=== PATIENT | male | born 1960 | race Caucasian/White ===

== ENCOUNTER 2020-03-25 00:46 | Inpatient (IN) ==
[2020-03-25] MEDS ORDERED: Isovue-370 500 ML BOTTLE IVP ONE ×2 (01:15)
[2020-03-25] MEDS ORDERED: EPINEPHrine 1 MG/ML VIAL IM ONE (01:19)
[2020-03-25] MEDS ORDERED: Piperacillin/Tazobactam 3.375 GM in 0.9 % Sodium Chloride Mini Bag 100 ML IVPB ONE (01:19)
[2020-03-25] MEDS ORDERED: Tdap (Boostrix) Vaccine 0.5 ML SYRINGE IM ONE (01:21)
[2020-03-25 01:30] LABS: Hematocrit 45.3 % (37.5-50.1); Hemoglobin 14.2 g/dL (12.9-16.9); Mean Corpuscular HGB Conc 31.3 g/dL (31.6-35.5); Mean Corpuscular Hemoglobin 30.9 pg (28.0-33.3); Mean Corpuscular Volume 98.5 fL (83.0-100.0); Platelet Count 344 K/mcL (140-400); Red Cell Distribution Width 12.9 % (11.5-14.5); White Blood Count 15.2 K/mcL (4.3-11.1)
[2020-03-25] MEDS ORDERED: Midazolam HCl 50 MG/100 ML IV.SOLN IVC SCH (01:30)
[2020-03-25 01:36] LABS: Prothrombin Time 11.4 Seconds (9.4-12.1)
[2020-03-25 01:38] LABS: Activated Partial Thrombo Time 29.3 Seconds (26.0-36.0)
[2020-03-25 01:51] LABS: BUN/Creatinine Ratio 8 (6-26); Blood Urea Nitrogen 10 mg/dL (6-20); Carbon Dioxide 23 mEq/L (23-29); Chloride 104 mEq/L (98-107); Creatine Kinase 232 Units/L (30-223); Ethanol < 10 mg/dL (Less than 10); Glucose 361 mg/dL (70-105); Magnesium 1.9 mg/dL (1.6-2.6); Osmolality,Calculated 302 (280-300); Potassium 3.9 mEq/L (3.5-5.1); Sodium 139 mEq/L (136-145); eGFR For African Americans > 60 (> 60); eGFR For Non-African Americans > 60 (> 60)
[2020-03-25 01:55] LABS: Bilirubin,Urine Negative (Negative); Blood,Urine Trace (Negative); Clarity,Urine Cloudy (Clear); Color,Urine Yellow (Yellow); Glucose,Urine (UA) >=1000 mg/dL (Normal); Ketones,Urine Negative (Negative); Leukocyte Esterase,Urine Negative (Negative); Nitrite,Urine Negative (Negative); PH,Urine 5.5 pH Units (5.0-8.0); Protein,Urine 100 mg/dL (Neg-Trace); Specific Gravity,Urine 1.021 (1.010-1.025); Urobilinogen,Urine Normal (Normal)
[2020-03-25 02:00] LABS: Troponin I 0.06 ng/mL (< 0.04)
[2020-03-25 02:00] LABS: Hyaline Casts,Urine Few per lpf (None-Few); RBC,Urine 0-3 per hpf (0-3); Squamous Epithelial Cell,Urine Many per lpf (None-Few)
[2020-03-25 02:14] LABS: Amphetamine Screen,Urine Negative ng/mL (Cutoff=1000); Barbiturate Screen,Urine Negative ng/mL (Cutoff=200); Benzodiazepines Screen,Urine Positive ng/mL (Cutoff=200); Cannabinoid Screen,Urine Positive ng/mL (Cutoff = 50); Cocaine Screen,Urine Negative ng/mL (Cutoff= 300); Opiate Screen,Urine Negative ng/mL (Cutoff=300); Phencyclidine Screen,Urine Negative ng/mL (Cutoff=25)
[2020-03-25] MEDS ORDERED: *HR* Midazolam HCl 2 MG/2 ML VIAL IVP ONE ×4 (02:17→18:11)
[2020-03-25 02:21] LABS: Calcium Oxalate Crystals,Urine Present; Mucus,Urine Few per lpf (None-Few)
[2020-03-25 02:22] LABS: Bacteria,Urine Few per hpf (None-Few)
[2020-03-25 02:54] LABS: ABG Base Excess -1 mEq/L (-2 to 3); ABG HCO3 33 mEq/L (21-27); ABG Oxygen Saturation 99 % (95-98); ABG PCO2 111 mmHg (35-45); ABG PH 7.08 pH Units (7.32-7.45); ABG PO2 190 mmHg (85-104); ABG TCO2 36 mEq/L (20-26); Blood Gas VT 500 cc
[2020-03-25 04:11] LABS: Acetaminophen < 10 mcg/mL (10-20); Salicylate < 2.5 mg/dL (15.0-30.0)
[2020-03-25] MEDS ORDERED: 0.9 % Sodium Chloride 1,000 ML IVC ONE (04:30)
[2020-03-25 04:31] LABS: ABG Base Excess -2 mEq/L (-2 to 3); ABG HCO3 32 mEq/L (21-27); ABG Oxygen Saturation 87 % (95-98); ABG PCO2 112 mmHg (35-45); ABG PH 7.07 pH Units (7.32-7.45); ABG PO2 77 mmHg (85-104); ABG TCO2 36 mEq/L (20-26); Blood Gas VT 500 cc
[2020-03-25] MEDS ORDERED: Artificial Tears SOLN 15 ML BOTTLE BOTH EYES PRN (07:53)
[2020-03-25] MEDS ORDERED: Vancomycin 1,750 MG in 0.9 % Sodium Chloride 250 ML IVPB SCH (08:00)
[2020-03-25 08:07] LABS: ABG Base Excess 3 mEq/L (-2 to 3); ABG HCO3 30 mEq/L (21-27); ABG Oxygen Saturation 95 % (95-98); ABG PCO2 51 mmHg (35-45); ABG PH 7.37 pH Units (7.32-7.45); ABG PO2 79 mmHg (85-104); ABG TCO2 31 mEq/L (20-26); Blood Gas Modality ASSIST CONTROL; Blood Gas VT 600 cc
[2020-03-25] MEDS: Chlorhexidine Rinse 15 ML MOUTHWASH MM SCH ×2 (08:52→20:54)
[2020-03-25] MEDS: Artificial Tears SOLN 15 ML BOTTLE BOTH EYES SCH ×4 (08:52→20:57)
[2020-03-25] MEDS ORDERED: *HR* Heparin 5,000 UNIT/ML VIAL SQ SCH (09:00)
[2020-03-25] MEDS: Dexmedetomidine HCl 400 MCG/100 ML MLS IVC SCH ×3 (09:30→22:20)
[2020-03-25] MEDS: FentaNYL (PF) 1,000 MCG/100 ML IV.SOLN IVC SCH ×2 (09:30→17:19)
[2020-03-25] MEDS: Piperacillin/Tazobactam 3.375 GM in 0.9 % Sodium Chloride Mini Bag 100 ML IVPB SCH ×2 (09:30→18:14)
[2020-03-25] MEDS ORDERED: *HR* Heparin 5,000 UNIT/ML VIAL IVP PRN ×2 (09:44)
[2020-03-25] MEDS ORDERED: *HR* Heparin 5,000 UNIT/ML VIAL IVP ONE (09:44)
[2020-03-25] MEDS: Ipratropium/Albuterol Neb 3 ML IH SCH ×5 (09:50→23:39)
[2020-03-25] MEDS ORDERED: Perflutren Lipid Microsphere 1.3 ML in 0.9 % Sodium Chloride 8.7 ML IVP ONE (09:58)
[2020-03-25] MEDS: MethylPREDNISolone 40 MG/ML VIAL IVP SCH ×2 (10:05→15:37)
[2020-03-25 11:20] LABS: Hematocrit 47.9 % (37.5-50.1); Hemoglobin 15.2 g/dL (12.9-16.9); Mean Corpuscular HGB Conc 31.7 g/dL (31.6-35.5); Mean Corpuscular Volume 97.8 fL (83.0-100.0); Mean Platelet Volume 9.6 fL (9.4-12.4); Platelet Count 190 K/mcL (140-400); Red Cell Distribution Width 13.1 % (11.5-14.5)
[2020-03-25 11:37] LABS: Heparin anti-factor XA UFH < 0.04 IU/mL (0.30-0.70); Prothrombin Time 11.6 Seconds (9.4-12.1)
[2020-03-25] MEDS ORDERED: Vancomycin 1,750 MG/517.5 ML IV.SOLN IVPB SCH (12:00)
[2020-03-25] MEDS: Heparin 25,000 UNIT/250 ML D5W 25,000 UNIT/250 ML IV.SOLN IVC SCH (12:17)
[2020-03-25] MEDS ORDERED: *HR* Dextrose 50 % in Water (Syg) 50 ML SYRINGE IVP PRN (13:35)
[2020-03-25] MEDS ORDERED: Dextrose Gel 15 GM/37.5 ML TUBE PO PRN ×2 (13:35)
[2020-03-25] MEDS ORDERED: D5% in Water 1,000 ML IVC PRN (13:35)
[2020-03-25 14:56] LABS: Estimated Average Glucose 120 mg/dl
[2020-03-25] MEDS: Insulin LISPRO 300 UNITS/3 ML VIAL SQ SCH (18:15)
[2020-03-25] MEDS ORDERED: *HR* Midazolam HCl 5 MG/5 ML VIAL IVP ONE (18:16)
[2020-03-25] MEDS: *HR* Midazolam HCl 2 MG/2 ML VIAL IVP PRN (20:56)
[2020-03-26] MEDS: *HR* Midazolam HCl 2 MG/2 ML VIAL IVP PRN (00:40)
[2020-03-26] MEDS: Dexmedetomidine HCl 400 MCG/100 ML MLS IVC SCH ×2 (01:45→05:38)
[2020-03-26] MEDS: MethylPREDNISolone 40 MG/ML VIAL IVP SCH ×4 (02:52→23:35)
[2020-03-26] MEDS: Piperacillin/Tazobactam 3.375 GM in 0.9 % Sodium Chloride Mini Bag 100 ML IVPB SCH ×3 (02:52→17:27)
[2020-03-26 03:39] LABS: Hematocrit 41.4 % (37.5-50.1); Mean Corpuscular HGB Conc 32.9 g/dL (31.6-35.5); Mean Corpuscular Hemoglobin 31.2 pg (28.0-33.3); Mean Platelet Volume 10.5 fL (9.4-12.4); Platelet Count 194 K/mcL (140-400); Red Blood Count 4.36 M/mcL (4.19-5.50); Red Cell Distribution Width 13.2 % (11.5-14.5)
[2020-03-26 03:45] LABS: Hemoglobin 13.6 g/dL (12.9-16.9)
[2020-03-26] MEDS: Ipratropium/Albuterol Neb 3 ML IH SCH ×6 (03:50→23:33)
[2020-03-26 03:59] LABS: BUN/Creatinine Ratio 21 (6-26); Blood Urea Nitrogen 20 mg/dL (6-20); Calcium 8.7 mg/dL (8.6-10.3); Carbon Dioxide 25 mEq/L (23-29); Chloride 104 mEq/L (98-107); Glucose 211 mg/dL (70-105); Osmolality,Calculated 299 (280-300); Potassium 3.6 mEq/L (3.5-5.1); Sodium 140 mEq/L (136-145); eGFR For African Americans > 60 (> 60); eGFR For Non-African Americans > 60 (> 60)
[2020-03-26 04:19] LABS: Blood Gas VT 600 cc; VBG HCO3 29 mEq/L (21-27); VBG PCO2 47 mmHg (41-51); VBG PO2 64 mmHg (25-50)
[2020-03-26] MEDS: Artificial Tears SOLN 15 ML BOTTLE BOTH EYES SCH ×3 (04:20→07:56)
[2020-03-26] MEDS: FentaNYL (PF) 1,000 MCG/100 ML IV.SOLN IVC SCH ×2 (05:37)
[2020-03-26] MEDS: Insulin LISPRO 300 UNITS/3 ML VIAL SQ SCH ×5 (06:01→23:35)
[2020-03-26] MEDS: Chlorhexidine Rinse 15 ML MOUTHWASH MM SCH (07:56)
[2020-03-26] MEDS ORDERED: Haloperidol Lactate 5 MG/ML VIAL IVP PRN (08:05)
[2020-03-26 09:30] LABS: Acinetobacter baumannii by PCR Not Detected (Not Detect); Candida albicans by PCR Not Detected (Not Detect); Candida glabrata by PCR Not Detected (Not Detect); Candida krusei by PCR Not Detected (Not Detect); Candida parapsilosis by PCR Not Detected (Not Detect); Candida tropicalis by PCR Not Detected (Not Detect); Enterobacter cloacae Cmplx PCR Not Detected (Not Detect); Enterobacteriaceae by PCR Not Detected (Not Detect); Enterococcus by PCR Not Detected (Not Detect); Escherichia coli by PCR Not Detected (Not Detect); Klebsiella oxytoca by PCR Not Detected (Not Detect); Klebsiella pneumoniae by PCR Not Detected (Not Detect); Proteus by PCR Not Detected (Not Detect); Pseudomonas aeruginosa by PCR Not Detected (Not Detect); Serratia marcescens by PCR Not Detected (Not Detect); Staphylococcus aureus by PCR Not Detected (Not Detect); Staphylococcus by PCR DETECTED (Not Detect); Streptococcus agalactiae(B)PCR Not Detected (Not Detect); Streptococcus by PCR Not Detected (Not Detect); Streptococcus pneumoniae PCR Not Detected (Not Detect); Streptococcus pyogenes (A) PCR Not Detected (Not Detect); mecA Methicillin-Resist Gene Not Detected (Not Detect)
[2020-03-26] MEDS: Heparin 25,000 UNIT/250 ML D5W 25,000 UNIT/250 ML IV.SOLN IVC SCH ×2 (13:56→14:34)
[2020-03-26] MEDS ORDERED: *HR* LORazepam 2 MG/ML VIAL IVP PRN (17:17)
[2020-03-26] MEDS: *HR* LORazepam 2 MG/ML VIAL IVP PRN ×3 (17:27→23:40)
[2020-03-26] MEDS: *HR* Promethazine 25 MG/ML VIAL IVP PRN ×2 (19:45→23:45)
[2020-03-27] MEDS ORDERED: Ondansetron 4 MG/2 ML VIAL ONE (00:15)
[2020-03-27] MEDS: Ondansetron 4 MG/2 ML VIAL IVP PRN ×2 (00:32→09:11)
[2020-03-27] MEDS: Piperacillin/Tazobactam 3.375 GM in 0.9 % Sodium Chloride Mini Bag 100 ML IVPB SCH ×4 (03:13→23:23)
[2020-03-27] MEDS: *HR* LORazepam 2 MG/ML VIAL IVP PRN ×3 (03:14→09:11)
[2020-03-27] MEDS: Ipratropium/Albuterol Neb 3 ML IH SCH ×6 (03:56→23:59)
[2020-03-27] MEDS: *HR* Promethazine 25 MG/ML VIAL IVP PRN ×2 (05:36→19:49)
[2020-03-27 05:45] LABS: Hematocrit 40.9 % (37.5-50.1); Hemoglobin 13.3 g/dL (12.9-16.9); Mean Corpuscular HGB Conc 32.5 g/dL (31.6-35.5); Mean Corpuscular Hemoglobin 30.4 pg (28.0-33.3); Mean Corpuscular Volume 93.4 fL (83.0-100.0); Mean Platelet Volume 10.1 fL (9.4-12.4); Platelet Count 234 K/mcL (140-400); Red Blood Count 4.38 M/mcL (4.19-5.50); Red Cell Distribution Width 13.3 % (11.5-14.5); White Blood Count 17.6 K/mcL (4.3-11.1)
[2020-03-27 06:03] LABS: BUN/Creatinine Ratio 28 (6-26); Blood Urea Nitrogen 27 mg/dL (6-20); Calcium 9.2 mg/dL (8.6-10.3); Carbon Dioxide 30 mEq/L (23-29); Chloride 103 mEq/L (98-107); Glucose 138 mg/dL (70-105); Osmolality,Calculated 299 (280-300); Potassium 3.9 mEq/L (3.5-5.1); Sodium 141 mEq/L (136-145); eGFR For African Americans > 60 (> 60); eGFR For Non-African Americans > 60 (> 60)
[2020-03-27] MEDS: Insulin LISPRO 300 UNITS/3 ML VIAL SQ SCH ×3 (06:15→17:32)
[2020-03-27] MEDS: MethylPREDNISolone 40 MG/ML VIAL IVP SCH ×3 (08:33→23:23)
[2020-03-27] MEDS ORDERED: Ringers Solution, Lactated 1,000 ML IVC ONE (09:33)
[2020-03-27] MEDS ORDERED: Heparin 25,000 UNIT/250 ML D5W 25,000 UNIT/250 ML IV.SOLN IVC SCH (11:02)
[2020-03-27] MEDS ORDERED: D5% in Water 1,000 ML IVC PRN (11:02)
[2020-03-27] MEDS ORDERED: *HR* Heparin 5,000 UNIT/ML VIAL IVP PRN ×2 (11:02)
[2020-03-27] MEDS ORDERED: Ondansetron 4 MG/2 ML VIAL IVP PRN (11:02)
[2020-03-27] MEDS ORDERED: *HR* Dextrose 50 % in Water (Syg) 50 ML SYRINGE IVP PRN (11:02)
[2020-03-27] MEDS ORDERED: Dextrose Gel 15 GM/37.5 ML TUBE PO PRN ×2 (11:02)
[2020-03-27] MEDS ORDERED: *HR* LORazepam 2 MG/ML VIAL IVP PRN ×3 (11:02)
[2020-03-27] MEDS: Aspirin 81 MG TAB.CHEW PO SCH (16:01)
[2020-03-27] MEDS: *HR* Heparin 5,000 UNIT/ML VIAL SQ SCH ×2 (16:01→21:00)
[2020-03-27] MEDS: Pantoprazole 40 MG VIAL IVP SCH (17:32)
[2020-03-27] MEDS ORDERED: Pantoprazole 40 MG VIAL IVP SCH (18:00)
[2020-03-28] MEDS: *HR* Promethazine 25 MG/ML VIAL IVP PRN (00:54)
[2020-03-28 01:05] LABS: Hematocrit 39.6 % (37.5-50.1); Hemoglobin 12.7 g/dL (12.9-16.9); Mean Corpuscular HGB Conc 32.1 g/dL (31.6-35.5); Mean Corpuscular Hemoglobin 30.2 pg (28.0-33.3); Mean Corpuscular Volume 94.3 fL (83.0-100.0); Mean Platelet Volume 10.1 fL (9.4-12.4); Platelet Count 223 K/mcL (140-400); Red Cell Distribution Width 13.2 % (11.5-14.5); White Blood Count 14.3 K/mcL (4.3-11.1)
[2020-03-28 01:26] LABS: BUN/Creatinine Ratio 27 (6-26); Blood Urea Nitrogen 24 mg/dL (6-20); Calcium 8.6 mg/dL (8.6-10.3); Carbon Dioxide 27 mEq/L (23-29); Chloride 104 mEq/L (98-107); Glucose 115 mg/dL (70-105); Osmolality,Calculated 295 (280-300); Potassium 4.2 mEq/L (3.5-5.1); Sodium 140 mEq/L (136-145); eGFR For African Americans > 60 (> 60); eGFR For Non-African Americans > 60 (> 60)
[2020-03-28 01:27] LABS: Chol/HDL Ratio 3.1 (0-4.9)
[2020-03-28 01:39] LABS: Thyroid Stimulating Hormone 0.179 mcIU/mL (0.340-5.600)
[2020-03-28] MEDS: Insulin LISPRO 300 UNITS/3 ML VIAL SQ SCH ×4 (02:22→16:23)
[2020-03-28] MEDS: Ipratropium/Albuterol Neb 3 ML IH SCH ×6 (03:56→23:40)
[2020-03-28] MEDS: *HR* Heparin 5,000 UNIT/ML VIAL SQ SCH ×3 (05:23→20:36)
[2020-03-28] MEDS: Pantoprazole 40 MG VIAL IVP SCH ×2 (05:23→17:21)
[2020-03-28] MEDS: MethylPREDNISolone 40 MG/ML VIAL IVP SCH (08:14)
[2020-03-28] MEDS: Aspirin 81 MG TAB.CHEW PO SCH (08:14)
[2020-03-28] MEDS: Piperacillin/Tazobactam 3.375 GM in 0.9 % Sodium Chloride Mini Bag 100 ML IVPB SCH (08:15)
[2020-03-28] MEDS: Acetaminophen 325 MG TABLET PO PRN ×2 (15:00→20:35)
[2020-03-28] MEDS: Ampicillin/Sulbactam 3,000 MG in 0.9 % Sodium Chloride Mini Bag 100 ML IVPB SCH ×2 (17:21→23:15)
[2020-03-28] MEDS ORDERED: Insulin LISPRO 300 UNITS/3 ML VIAL SQ SCH (21:00)
[2020-03-29] MEDS: Acetaminophen 325 MG TABLET PO PRN ×5 (00:42→20:10)
[2020-03-29] MEDS ORDERED: *HR* Labetalol 20 MG/4 ML SYRINGE IVP ONE (02:36)
[2020-03-29] MEDS: Ipratropium/Albuterol Neb 3 ML IH SCH ×6 (03:34→23:29)
[2020-03-29] MEDS: Ampicillin/Sulbactam 3,000 MG in 0.9 % Sodium Chloride Mini Bag 100 ML IVPB SCH (04:35)
[2020-03-29] MEDS: Pantoprazole 40 MG VIAL IVP SCH (04:35)
[2020-03-29] MEDS: *HR* Heparin 5,000 UNIT/ML VIAL SQ SCH ×3 (04:35→20:05)
[2020-03-29 05:05] LABS: Hematocrit 40.8 % (37.5-50.1); Hemoglobin 13.5 g/dL (12.9-16.9); Mean Corpuscular HGB Conc 33.1 g/dL (31.6-35.5); Mean Corpuscular Hemoglobin 30.8 pg (28.0-33.3); Mean Corpuscular Volume 92.9 fL (83.0-100.0); Platelet Count 205 K/mcL (140-400); Red Blood Count 4.39 M/mcL (4.19-5.50); Red Cell Distribution Width 12.7 % (11.5-14.5); White Blood Count 11.4 K/mcL (4.3-11.1)
[2020-03-29 05:12] LABS: BUN/Creatinine Ratio 21 (6-26); Blood Urea Nitrogen 18 mg/dL (6-20); Calcium 8.6 mg/dL (8.6-10.3); Carbon Dioxide 28 mEq/L (23-29); Chloride 102 mEq/L (98-107); Glucose 98 mg/dL (70-105); Osmolality,Calculated 288 (280-300); Potassium 3.5 mEq/L (3.5-5.1); Sodium 138 mEq/L (136-145); eGFR For African Americans > 60 (> 60); eGFR For Non-African Americans > 60 (> 60)
[2020-03-29] MEDS: Insulin LISPRO 300 UNITS/3 ML VIAL SQ SCH (07:48)
[2020-03-29] MEDS: Aspirin 81 MG TAB.CHEW PO SCH (08:40)
[2020-03-29] MEDS ORDERED: predniSONE 20 MG TABLET PO SCH (09:00)
[2020-03-29] MEDS: amLODIPine 5 MG TABLET PO SCH (13:08)
[2020-03-29] MEDS ORDERED: Ibuprofen 600 MG TABLET PO ONE (16:26)
[2020-03-29] MEDS ORDERED: Melatonin 3 MG TABLET PO ONE (19:52)
[2020-03-29] MEDS ORDERED: *HR* Promethazine 25 MG/ML VIAL IVP ONE (23:48)
[2020-03-30] MEDS: Acetaminophen 325 MG TABLET PO PRN ×3 (01:17→13:20)
[2020-03-30 02:20] LABS: Hematocrit 41.3 % (37.5-50.1); Hemoglobin 13.9 g/dL (12.9-16.9); Mean Corpuscular HGB Conc 33.7 g/dL (31.6-35.5); Mean Corpuscular Hemoglobin 30.6 pg (28.0-33.3); Platelet Count 218 K/mcL (140-400); Red Blood Count 4.54 M/mcL (4.19-5.50); Red Cell Distribution Width 12.3 % (11.5-14.5); White Blood Count 9.4 K/mcL (4.3-11.1)
[2020-03-30 02:41] LABS: BUN/Creatinine Ratio 20 (6-26); Blood Urea Nitrogen 18 mg/dL (6-20); Calcium 8.6 mg/dL (8.6-10.3); Carbon Dioxide 27 mEq/L (23-29); Chloride 100 mEq/L (98-107); Glucose 123 mg/dL (70-105); Osmolality,Calculated 289 (280-300); Potassium 3.6 mEq/L (3.5-5.1); Sodium 138 mEq/L (136-145); eGFR For African Americans > 60 (> 60); eGFR For Non-African Americans > 60 (> 60)
[2020-03-30] MEDS: Ipratropium/Albuterol Neb 3 ML IH SCH ×4 (03:28→15:26)
[2020-03-30] MEDS: *HR* Heparin 5,000 UNIT/ML VIAL SQ SCH ×2 (05:59→13:17)
[2020-03-30] MEDS: amLODIPine 5 MG TABLET PO SCH (09:07)
[2020-03-30] MEDS: Aspirin 81 MG TAB.CHEW PO SCH (09:07)
[2020-03-30] MEDS ORDERED: *HR* OxyCODONE/APAP 5/325 TABLET PO ONE (09:37)
[2020-03-30] MEDS ORDERED: amLODIPine 5 MG TABLET PO SCH (12:40)
[2020-03-30 13:16] VITALS: BP 130/81
== END 2020-03-30 16:30 | disposition home health service (06) | DRG 812 ==
LOC: EMEROOARM 00:46 → SUATTDRO 05:58 → MERGE 05:58 → ICNU 05:58 → 2ANU 03-27 17:18
PROVIDERS: ADMIT Family Medicine; ATTEND Family Medicine